=== PATIENT | male | born 1970 | race Caucasian/White ===

== ENCOUNTER → 2024-04-22 | Outpatient (CLI) | payer BC, SELFPAY ==
[2024-04-22 12:25] LABS: Free T4 (Free Thyroxine) 1.08 ng/dL (0.89-1.76)
== END | disposition home or self-care (01) ==
LOC: COPL 11:17
PROVIDERS: PCP Internal Medicine; Referring Provider Internal Medicine; Visit Provider Internal Medicine
DX: R94.6 Abnormal results of thyroid function studies (principal)
CPT/HCPCS: 36415; 84439; 84443

== ENCOUNTER → 2024-04-26 | Outpatient (CLI) | payer BC, SELFPAY ==
--- NOTE | 2024-04-26 17:00 | XR_ITS ---
Examination: Thyroid sonography complete TECHNIQUE: By resolution grayscale sonographic images thyroid lobes are carful analysis Exam date and time: April 26, 2024 1630 hours INDICATIONS: Enlarged thyroid on palpation by physician on examination one month ago FINDINGS: Right thyroid 5.3 x 2.2 x 2.0 cm Left thyroid 4.9 x 1.8 x 1.6 cm No thyroid nodules IMPRESSION: Mild thyromegaly, consider correlation with oral I-123 thyroid uptake and scan
== END | disposition home or self-care (01) ==
PROVIDERS: PCP Internal Medicine; Referring Provider Internal Medicine; Visit Provider Internal Medicine
DX: E01.0 Iodine-deficiency related diffuse (endemic) goiter (principal)
CPT/HCPCS: 76536

== ENCOUNTER 2024-06-22 08:30 | Outpatient (RCR) | payer BC, SELFPAY ==
--- NOTE | 2024-06-21 08:31 | XR_ITS ---
Examination: Nuclear medicine thyroid scan and uptake Exam date and time: June 22, 2024 0834 hours INDICATIONS: Elevated TSH, this month, ultrasound examination April 26, 2024 mild thyromegaly TECHNIQUE AND FINDINGS: Oral administration 293 uCi I-123 24 hour 6 hour uptake values recorded as well as anterior and oblique scans 6 hour uptake 20.9% normal range 6-24% 24 hour uptake 33.9% normal range 10-36% Normal scan IMPRESSION: Normal study
== END 2024-06-27 23:59 | disposition home or self-care (01) ==
LOC: SNUC 08:30
PROVIDERS: PCP Internal Medicine; Referring Provider Internal Medicine; Visit Provider Internal Medicine
DX: R94.6 Abnormal results of thyroid function studies (principal)
CPT/HCPCS: 78014; A9516

== ENCOUNTER → 2024-07-15 | Outpatient (CLI) | payer BC, SELFPAY ==
[2024-07-15 10:26] LABS: Free T4 (Free Thyroxine) 1.11 ng/dL (0.89-1.76)
[2024-07-15 10:29] LABS: Follicle Stimulating Hormone 9.63 mIU/mL (See Note)
[2024-07-15 10:33] LABS: T4 (Thyroxine) 7.9 mcg/dL (4.5-10.9)
[2024-07-19 06:39] LABS: ACTH, Plasma* 18 pg/mL (6-50)
[2024-08-03 06:52] LABS: Cortisol,total,LC/MS/MS* 6.3 mcg/dL; DHEA Sulfate* 293 mcg/dL (38-313); Luteinizing Hormone* 9.6 mIU/mL (1.5-9.3); Prolactin* 4.1 ng/mL (2.0-18.0); T3,Total* 105 ng/dL (76-181); Testosterone,Tot (Adult Male)* 433 ng/dL (250-827); Thyroid Peroxidase Antibodies* 293 IU/mL (<9)
== END | disposition home or self-care (01) ==
PROVIDERS: PCP Internal Medicine; Referring Provider Internal Medicine; Visit Provider Internal Medicine Endocrinology, Diabetes & Metabolism
DX: E03.9 Hypothyroidism, unspecified (principal); E29.1 Testicular hypofunction
CPT/HCPCS: 36415; 82024; 82533; 82627; 83001; 83002; 84146; 84403; 84436; 84439; 84443; 84480; 86376

== ENCOUNTER → 2024-12-02 | Outpatient (CLI) | payer BC, SELFPAY ==
[2024-12-02 12:20] LABS: Basophils # (Auto) 0.1 Thou/mm3 (0.0-0.2); Basophils % (Auto) 1 % (0-2.5); Eosinophils # (Auto) 0.3 Thou/mm3 (0.0-0.5); Eosinophils % (Auto) 4 % (0-10); Hematocrit 37.5 % (41.0-53.0); Hemoglobin 12.8 g/dL (13.5-16.0); Immature Granulocytes Auto 0.03 Thou/mm3 (0.00-0.00); Lymphocytes # (Auto) 0.7 Thou/mm3 (1.0-4.8); Lymphocytes % (Auto) 11 % (10-50); Mean Corpuscular HGB Conc 34.1 g/dl (31.0-37.0); Mean Corpuscular Hemoglobin 29.7 pg (25.0-35.0); Mean Corpuscular Volume 87 fL (80-100); Monocytes # (Auto) 0.5 Thou/mm3 (0.0-0.8); Monocytes % (Auto) 7 % (0-12); Neutrophils # (Auto) 5.1 Thou/mm3 (1.8-7.7); Neutrophils % (Auto) 77 % (37-80); Nucleated Red Blood Cell # 0.00 Thou/mm3 (0.00-0.00); Nucleated Red Blood Cell % 0 /100 WBC (0); Platelet Count 280 Thou/mm3 (140-440); RDW Standard Deviation 41.1 fL (35.1-43.9); Red Blood Count 4.31 Miln/mm3 (4.50-5.90); White Blood Count 6.6 Thou/mm3 (3.8-10.6)
[2024-12-02 12:28] LABS: Glucose Estimated Average 206 mg/dL (80-131); Hemoglobin A1C 8.8 % Hgb (4.8-6.0)
[2024-12-02 12:43] LABS: T4 (Thyroxine) 7.5 mcg/dL (4.5-10.9)
[2024-12-02 12:45] LABS: Creatinine MALB Rnd Ur 140 mg/dL (30-125); Microalbumin, Random Urine 7 mg/L (0-300)
[2024-12-02 12:46] LABS: Microalbumin Creat Ratio 5 mg/gCrea (<30)
[2024-12-02 12:48] LABS: Alanine Aminotransferase 14 U/L (10-49); Albumin, Serum 4.5 gm/dL (3.5-5.0); Albumin/Globulin Ratio 1.6 (1.2-2.2); Alkaline Phosphatase 84 U/L (46-116); Anion Gap 13 (7-16); Aspartate Amino Transferase 11 U/L (0-34); BUN/Creatinine Ratio 15 Ratio (12-20); Bilirubin,Total 1.0 mg/dL (0.3-1.2); Blood Urea Nitrogen 16 mg/dL (9-23); Calcium 9.6 mg/dL (8.3-10.6); Calcium (Corrected) 9.6 mg/dL (8.5-10.1); Carbon Dioxide 21.7 mMol/L (20.0-31.0); Cardiac Risk Estimate 3.8 RATIO (4.0-6.7); Chloride 105 mMol/L (98-107); Cholesterol 143 mg/dL (132-200); Creatinine (Component) 1.1 mg/dL (0.6-1.3); Free T4 (Free Thyroxine) 1.18 ng/dL (0.89-1.76); Globulin 2.9 gm/dL (2.3-3.5); Glucose 235 mg/dL (74-106); HDL Cholesterol 38 mg/dL (40-60); LDL Cholesterol,Calculated 69 mg/dL (0-130); Osmolality,Calculated 288 (275-295); Potassium 4.7 mMol/L (3.4-5.1); Sodium 140 mMol/L (136-145); Thyroid Stimulating Hormone 3.25 uIU/mL (0.55-4.78); Total Protein 7.4 gm/dL (5.7-8.2); Triglycerides 178 mg/dL (30-150); eGFR > 60 See Note
[2024-12-08 06:27] LABS: T3,Total* 95 ng/dL (76-181); Testosterone,Total* 308 ng/dL (250-1100)
== END | disposition home or self-care (01) ==
LOC: COPL 11:20
PROVIDERS: PCP Internal Medicine; Referring Provider Internal Medicine; Visit Provider Internal Medicine
DX: E03.9 Hypothyroidism, unspecified (principal); E11.65 Type 2 diabetes mellitus with hyperglycemia; E29.1 Testicular hypofunction; R94.6 Abnormal results of thyroid function studies
CPT/HCPCS: 36415; 80053; 80061; 82043; 82570; 83036; 84403; 84436; 84439; 84443; 84480; 85025

== ENCOUNTER 2025-03-08 17:43 | Emergency (ER) | payer BC, SELFPAY ==
[2025-03-08 17:51] VITALS: BP 170/97; PULSE 92; RESP 18; TEMP 37.2; O2SAT 96; BMI 27.1
[2025-03-08 18:11] VITALS: PULSE 88; RESP 16; O2SAT 100
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
== END 2025-03-08 21:00 | disposition home or self-care (01) ==
PROVIDERS: Emergency Provider Emergency Medicine
DX: M25.531 Pain in right wrist (principal); E11.9 Type 2 diabetes mellitus without complications; V89.2XXA Person injured in unspecified motor-vehicle accident, traffic, initial encounter; Y92.410 Unspecified street and highway as the place of occurrence of the external cause
CPT/HCPCS: 70450; 71250; 72125; 73110; 74176; 99283

== ENCOUNTER → 2025-03-27 | Outpatient (CLI) | payer BC, SELFPAY ==
[2025-03-27 10:08] LABS: Glucose Estimated Average 131 mg/dL (80-131); Hemoglobin A1C 6.2 % Hgb (4.8-6.0)
[2025-03-27 11:12] LABS: Creatinine MALB Rnd Ur 123 mg/dL (30-125); Microalbumin Creat Ratio 7 mg/gCrea (<30); Microalbumin, Random Urine 9 mg/L (0-300)
== END | disposition home or self-care (01) ==
LOC: COPL 08:59
PROVIDERS: PCP Internal Medicine; Referring Provider Internal Medicine; Visit Provider Internal Medicine
DX: E11.65 Type 2 diabetes mellitus with hyperglycemia (principal); I10 Essential (primary) hypertension
CPT/HCPCS: 36415; 82043; 82570; 83036